=== PATIENT | male | born 1980 | race Hispanic/Latino ===

== ENCOUNTER 2017-06-16 01:35 | Observation (INO) | payer SELFPAY ==
[2017-06-16 01:43] VITALS: TEMP 98.6
--- NOTE | 2017-06-16 01:59 | ED PDOC ---
HPI: Psych/Substance Abuse Time Seen by Provider: 06/16/17 01:39 Chief Complaint (Nursing): Substance Abuse Chief Complaint (Provider): substance abuse ED Caveat: Intoxicated History Per: EMS Onset/Duration Of Symptoms: Mins Additional Complaint(s): The patient is a 36yo male, brought to the ED by EMS for evaluation. Patient was found outside, attempting to eat a shoe. Patient is not able to provide a HPI or ROS due to his intoxicated state. Of note, per EMS patient is reported to have a history of PTSD. Past Medical History Reviewed: Historical Data, Nursing Documentation, Vital Signs Vital Signs: Last Vital Signs Temp 98.6 F 06/16/17 01:39 Pulse 110 H 06/16/17 01:39 Resp 16 06/16/17 01:39 BP 157/69 H 06/16/17 01:39 Pulse Ox 97 06/16/17 01:39 - Medical History PMH: No Chronic Diseases - Surgical History Surgical History: No Surg Hx - Family History Family History: States: No Known Family Hx - Immunization History Hx Influenza Vaccination: Yes Hx Pneumococcal Vaccination: Yes - Home Medications Home Medications: Ambulatory Orders Medication Instructions Recorded No Known Home Med 10/12/15 - Allergies Allergies/Adverse Reactions: Allergies Allergy/AdvReac Type Severity Reaction Status Date / Time No Known Allergies Allergy Verified 06/16/17 01:39 Review of Systems Review Of Systems: ROS cannot be obtained secondary to pt's inabilty to answer questions. (patient acutely intoxicated) Physical Exam - Reviewed Nursing Documentation Reviewed: Yes Vital Signs Reviewed: Yes - Physical Exam Appears: Positive for: No Acute Distress Head Exam: Positive for: ATRAUMATIC, NORMAL INSPECTION, NORMOCEPHALIC Eye Exam: Positive for: Normal appearance Neck: Positive for: Supple Cardiovascular/Chest: Positive for: Regular Rate, Rhythm Respiratory: Positive for: Normal Breath Sounds. Negative for: Respiratory Distress Gastrointestinal/Abdominal: Positive for: Soft. Negative for: Tenderness Back: Positive for: Normal Inspection Extremity: Positive for: Normal ROM. Negative for: Deformity, Swelling Neurologic/Psych: Positive for: Gait (unsteady). Negative for: Motor/Sensory Deficits - Laboratory Results Result Diagrams: 06/16/17 02:10 06/16/17 02:10 - ECG O2 Sat by Pulse Oximetry: 97 (RA) Pulse Ox Interpretation: Normal Medical Decision Making Medical Decision Making: Time: 0144 Impression: Acute intoxication Plan: -- Labs -- Haldol 5 mg IM -- Ativan 2 mg IM -- Patient placed in 4point restraints as well as 1:1 observation due to possibility of harm to self and staff. Reassess Time: 07 --Patient was endorsed to Dr. Luis M Rodriguez III. Pending sobriety and re- evaluation. Scribe Attestation: Documented by Millie Olvera acting as a scribe for José Miguel Macias MD. Provider Attestation: All medical record entries made by the Scribe were at my direction and personally dictated by me. I have reviewed the chart and agree that the record accurately reflects my personal performance of the history, physical exam, medical decision making, and the department course for this patient. I have also personally directed, reviewed, and agree with the discharge instructions and disposition. ED OBSERVATION Date of observation admission: 06/16/17 Time of observation admission: 01:44 - Observation admission statement Patient is being placed in observation because:: Patient acutely intoxicated - Goals of Observation Goals of observation are:: Pending labs, clinical sobriety - Progress Note Progress Note: 06/16/17 03:10 Resting in room, no acute distress. 06/16/17 04:45 Resting in room, no acute distress. 06/16/17 06:13 Patient resting in room, no acute distress. 06/16/17 07:00 Patient to be signed out to Dr. Rodriguez pending clinical sobriety. Disposition - Clinical Impression Clinical Impression: Alcohol abuse with intoxication - Patient ED Disposition Is Patient to be Admitted: Transfer of Care - Disposition Disposition: Transfer of Care Disposition Time: 01:44 Condition: STABLE Patient Signed Over To: Luis M Rodriguez III Handoff Comments: pending clinical sobriety
[2017-06-16 02:31] LABS: RBC URINE 1 /hpf (0-3); URINE BILIRUBIN NEGATIVE (NEGATIVE); URINE BLOOD NEGATIVE (NEGATIVE); URINE COLOR COLORLESS (YELLOW); URINE GLUCOSE (UA) NEG (Normal); URINE KETONE NEGATIVE (NEGATIVE); URINE LEUKOCYTE ESTERASE NEG Leu/uL (Negative); URINE PROTEIN NEGATIVE (NEGATIVE); URINE UROBILINOGEN 0.2-1.0 mg/dL (0.2-1.0)
[2017-06-16 02:33] LABS: BASO % 0.3 % (0.0-2.0); EOS % 0.2 % (0.0-4.0); HEMATOCRIT 47.3 % (35.0-51.0); LYMPH # 1.7 K/uL (1.0-4.3); LYMPH % 21.4 % (20.0-40.0); MEAN CELL VOLUME 92.1 fl (80.0-94.0); MEAN CORPUSCULAR HGB CONC 34.7 g/dL (33.0-37.0); MEAN PLATELET VOLUME 7.3 fl (7.2-11.7); MONO # 0.5 K/uL (0.0-0.8); MONO % 6.5 % (0.0-10.0); NEUT # 5.8 K/uL (1.8-7.0); NEUT % 71.6 % (50.0-75.0); NRBC % 0.1 % (0.0-0.0); RED CELL DISTRIBUTION WIDTH 12.9 % (11.5-14.5)
[2017-06-16 02:41] LABS: BLOOD UREA NITROGEN 12 mg/dl (9-20); GFR AFRICAN-AMERICAN > 60; GLUCOSE,RANDOM 100 mg/dL (75-110); POTASSIUM 3.6 MMOL/L (3.6-5.0); SODIUM 145 mmol/l (132-148)
[2017-06-16 02:42] LABS: ALB/GLOB RATIO 1.6 (1.0-2.1); ALKALINE PHOSPHATASE 67 U/L (38-126); ALT/SGPT 49 U/L (21-72); AST/SGOT 28 U/L (17-59); BILIRUBIN,TOTAL 0.4 mg/dl (0.2-1.3); CALCIUM 9.4 mg/dL (8.4-10.2); CARBON DIOXIDE 25 mmol/L (22-30); CHLORIDE 104 mmol/L (98-107); TOTAL PROTEIN 8.2 G/DL (6.3-8.2)
[2017-06-16 03:40] VITALS: O2SAT 97
[2017-06-16 05:15] LABS: ALCOHOL SERUM 414 mg/dl (0-10)
--- NOTE | 2017-06-16 07:05 | ED PDOC ---
- Laboratory Results Result Diagrams: 06/16/17 02:10 06/16/17 02:10 - ECG O2 Sat by Pulse Oximetry: 97 (RA) Pulse Ox Interpretation: Normal Medical Decision Making Medical Decision Making: Time: 0700 --Patient was endorsed to provider by Dr. José Miguel Macias. Pending sobriety and re-evaluation. --Patient is resting comfortably with stable vital signs. Time: 0830 --Patient continues to rest comfortably with stable vitals. Time: 1000 --Patient is resting comfortably with stable vitals. Time: 1130 --Patient is resting comfortably with stable vitals. 12noon- cleared by crisis, Dr Quiñones for discharge. Pt cooperative and stable gait clear speech. Clinical Impression: Alcohol abuse Scribe Attestation: Documented by Berenice Patel, acting as a scribe for Luis M Rodriguez III, DO. Provider Attestation: All medical record entries made by the Scribe were at my direction and personally dictated by me. I have reviewed the chart and agree that the record accurately reflects my personal performance of the history, physical exam, medical decision making, and the department course for this patient. I have also personally directed, reviewed, and agree with the discharge instructions and disposition. Disposition - Clinical Impression Clinical Impression: Alcohol abuse with intoxication - POA Present On Arrival: None - Disposition Disposition: Routine/Home Disposition Time: 12:00 Condition: STABLE
[2017-06-16 08:09] VITALS: BP 138/75; PULSE 107; RESP 20
== END 2017-06-16 12:03 | disposition home or self-care (01) ==
LOC: H.ER 01:35 → H.EROBSV 01:55
PROVIDERS: ADMIT Emergency Medicine; ATTEND Emergency Medicine
DX: F10.129 Alcohol abuse with intoxication, unspecified (principal); F43.10 Post-traumatic stress disorder, unspecified; Y90.8 Blood alcohol level of 240 mg/100 ml or more
CPT/HCPCS: 80053; 81003; 82948; 85025; 96372; 99285; G0378; G0480; J1630; J2060

== ENCOUNTER 2018-01-26 03:38 | Emergency (ER) | payer SELFPAY ==
[2018-01-26 03:52] VITALS: TEMP 98.7
--- NOTE | 2018-01-26 04:29 | ED PDOC ---
HPI: Psych/Substance Abuse Time Seen by Provider: 01/26/18 03:51 Chief Complaint (Nursing): Alcohol Ingestion Chief Complaint (Provider): Alcohol Ingestion History Per: Patient History/Exam Limitations: intoxication Modifying Factor(s): Alcohol Additional Complaint(s): 37-year-old brought in by EMS and [email or web address] [employer] for alcohol intoxication. PMD: No Family Provider Past Medical History Reviewed: Historical Data, Nursing Documentation, Vital Signs Vital Signs: Last Vital Signs Temp 98.7 F 01/26/18 03:51 Pulse 124 H 01/26/18 03:51 Resp 18 01/26/18 03:51 BP Pulse Ox 98 01/26/18 03:51 - Medical History PMH: Post Traumatic Stress Disorder Denies: Diabetes, Hepatitis, HIV, HTN, Seizures, Sexually Transmitted Disease - Family History Family History: States: Unknown Family Hx - Social History Alcohol: Other (Yes) - Immunization History Hx Influenza Vaccination: Yes Hx Pneumococcal Vaccination: Yes - Home Medications Home Medications: Ambulatory Orders Medication Instructions Recorded No Known Home Med 10/12/15 - Allergies Allergies/Adverse Reactions: Allergies Allergy/AdvReac Type Severity Reaction Status Date / Time No Known Allergies Allergy Verified 06/16/17 01:39 Review of Systems Review Of Systems: ROS cannot be obtained secondary to pt's inabilty to answer questions. (Caveat: Patient is intoxicated) Physical Exam - Reviewed Nursing Documentation Reviewed: Yes Vital Signs Reviewed: Yes - Physical Exam Appears: Positive for: No Acute Distress Head Exam: Positive for: ATRAUMATIC, NORMAL INSPECTION, NORMOCEPHALIC Skin: Positive for: Normal Color Eye Exam: Positive for: Normal appearance ENT: Positive for: Normal ENT Inspection Neck: Positive for: Normal Cardiovascular/Chest: Positive for: Regular Rate, Rhythm Respiratory: Positive for: Normal Breath Sounds Gastrointestinal/Abdominal: Positive for: Normal Exam Back: Positive for: Normal Inspection Extremity: Positive for: Normal ROM Neurologic/Psych: Positive for: Mood/Affect (Colorful), Other (Slurred speech noted) - ECG O2 Sat by Pulse Oximetry: 98 (RA) Pulse Ox Interpretation: Normal Medical Decision Making Medical Decision Making: Time: 03:53 Impression(s): Alcohol Intoxication Plan: - Alcohol Serum - Drug Screen, Urine - Accucheck Patient to be signed out to Dr. Santamaria @ 07:00, pending sobriety and re- evaluation Scribe Attestation: Documented by German Galindo, acting as a scribe for Ana Ely PA-C Provider Scribe Attestation: All medical record entries made by the Scribe were at my direction and personally dictated by me. I have reviewed the chart and agree that the record accurately reflects my personal performance of the history, physical exam, medical decision making, and the department course for this patient. I have also personally directed, reviewed, and agree with the discharge instructions and disposition. Disposition - Clinical Impression Clinical Impression: Alcohol intoxication - Patient ED Disposition Is Patient to be Admitted: Transfer of Care - Disposition Referrals: [facility] [Outside] Disposition: Transfer of Care Disposition Time: 07:00 Condition: IMPROVED Instructions: Alcohol Abuse and Alcoholism (DC) Forms: [employer] (French) Patient Signed Over To: Anju Santamaria (pending sobriety and re-evaluation)
[2018-01-26 05:18] LABS: BARBITURATES, UR NEGATIVE (NEGATIVE); BENZODIAZEPINES, UR NEGATIVE (NEGATIVE); OPIATES, UR NEGATIVE (NEGATIVE); PHENCYCLIDINE, UR NEGATIVE (NEGATIVE)
--- NOTE | 2018-01-26 07:10 | ED PDOC ---
- ECG O2 Sat by Pulse Oximetry: 98 (RA) Pulse Ox Interpretation: Normal Medical Decision Making Medical Decision Making: Patient signed to sc @ [address] Macias, pending sobriety and re-evaluation. Time: 1233 -- Patient is awake, alert, oriented x3 with a steady gait. Patient to be discharged home. Scribe Attestation: Documented by Evangelista Grayson, acting as a scribe for Dr. Anju Santamaria MD. Provider Scribe Attestation: All medical record entries made by the Scribe were at my direction and personally dictated by me. I have reviewed the chart and agree that the record accurately reflects my personal performance of the history, physical exam, medical decision making, and the department course for this patient. I have also personally directed, reviewed, and agree with the discharge instructions and disposition. Disposition - Clinical Impression Clinical Impression: Alcohol intoxication - POA Present On Arrival: None - Disposition Referrals: [facility] [Outside] Disposition: Routine/Home Disposition Time: 12:35 Condition: IMPROVED Instructions: Alcohol Abuse and Alcoholism (DC) Forms: [facility] (Citizen [place])
[2018-01-26 13:04] VITALS: BP 124/78; PULSE 76; RESP 15
[2018-01-27 03:29] VITALS: O2SAT 98
== END 2018-01-26 13:05 | disposition home or self-care (01) ==
LOC: H.ER 03:38
DX: F10.129 Alcohol abuse with intoxication, unspecified (principal); F43.10 Post-traumatic stress disorder, unspecified
CPT/HCPCS: 99285; G0480